=== PATIENT | male | born 1985 | race Caucasian/White ===

== ENCOUNTER 2023-07-13 07:56 | Inpatient (IN) | payer BC, SELFPAY ==
[2023-07-07 09:33] VITALS: BMI 23.3
[2023-07-07 10:13] LABS: Hematocrit 42.7 % (39.0-52.0); Hemoglobin 14.3 g/dL (13.0-18.0); Mean Corp Hgb Conc. 33.5 g/dL (33.0-37.0); Mean Corpuscular Hgb 31.2 pg (27.0-31.0); Platelet Count 223 10^3/uL (130-400); Red Blood Cell Count 4.59 10^6/uL (4.70-6.10); Red Cell Dist. Width 12.6 % (11.5-14.5)
[2023-07-07 10:25] LABS: APTT 28.4 Sec (23.4-35.0); INR 1.01; PT 13.1 Sec (11.4-14.6)
[2023-07-07 11:15] LABS: ALT (SGPT) 50 U/L (0-50); AST (SGOT) 47 U/L (17-59); Albumin 4.7 g/dl (3.5-5.0); Alkaline Phosphatase 66 U/L (38-126); Blood Urea Nitrogen 14 mg/dl (9-20); Calcium 9.8 mg/dl (8.4-10.2); Carbon Dioxide 28 mmol/L (22-30); Chloride 101 mmol/L (98-107); Estimated Creatinine Clearance > 125 ml/min; Glucose 103 mg/dl (70-99); Potassium 4.7 mmol/L (3.5-5.1); Sodium 138 mmol/L (135-145); Total Bilirubin 0.6 mg/dl (0.2-1.3); eGFR > 60.00
[2023-07-07 11:50] LABS: Glycohemoglobin (HgbA1c) 5.4 % (4.0-5.6)
[2023-07-13] VITALS (17 sets, daily range): BP systolic 95–119; BP diastolic 52–78; BMI 23.3
[2023-07-13] MEDS: TYLENOL 1000 MG PO (08:35)
[2023-07-13] MEDS: NORMOSOL-R 1000 IV ×2 (08:36→14:36)
[2023-07-13] MEDS: HEPARIN 5000 UNITS SC (08:36)
[2023-07-13] MEDS: ENTEREG 12 MG PO (08:36)
--- NOTE | 2023-07-13 13:53 | W.IMMPOSTOP ---
Documented by User: RADAMES De La Cruz 07/13/23 13:56
Surgical Immed Post Op Note
-
Primary Surgeon: Umang Garcia M.D.
Assisting Surgeon: Rowan Adamson
Pre-op Diagnosis: Sigmoid diverticulitis
Post-op Diagnosis: Sigmoid diverticulitis
Procedure Performed: Robotic sigmoid colon resection
Anesthesia Type: GET
Specimen / Cultures: Sigmoid colon
Estimated Blood Loss: 20 cc
Complications: None
Operative Findings:

Documented by User: Satish Garcia MD 07/13/23 14:08
Surgical Immed Post Op Note
-
Primary Surgeon: Umang Garcia M.D.
Assisting Surgeon: Rowan Adamson
Pre-op Diagnosis: Sigmoid diverticulitis
Post-op Diagnosis: Sigmoid diverticulitis
Procedure Performed: Robotic sigmoid colon resection
Anesthesia Type: GET
Specimen / Cultures: Sigmoid colon
Estimated Blood Loss: 20 cc
Complications: None
Operative Findings: Chronic sigmoid diverticulitis
Left paraduodenal hernia
Small right indirect inguinal hernia
28mm EEA
Normal leak test
Patient's notified.
[2023-07-13 14:20] LABS: Glucose - Point of Care 122 mg/dl (70-99)
[2023-07-13] MEDS: COMPAZINE 5 MG IV (14:26)
[2023-07-13] MEDS: SUBLIMAZE 50 MCG IV (14:30)
[2023-07-13] MEDS: TORADOL 15 MG IV ×2 (15:11→20:06)
[2023-07-13] MEDS: TYLENOL 650 MG PO ×3 (16:13→23:31)
[2023-07-14 00:53] VITALS: BP 98/56
[2023-07-14] MEDS: TORADOL 15 MG IV ×2 (01:10→08:20)
[2023-07-14] MEDS: NORMOSOL-R 1000 IV (02:30)
[2023-07-14 03:09] VITALS: BMI 23.0
[2023-07-14] MEDS: TYLENOL 650 MG PO ×3 (04:06→12:48)
[2023-07-14 05:44] LABS: % Basophils 0.1 % (0-2); % Eosinophils 0.1 % (0-6); % Immature Granulocytes 0.3 % (0-0.5); % Lymphocytes 18.3 % (20.5-51.1); % Monocytes 7.7 % (1.7-9.3); % Neutrophils 73.5 % (42.2-75.2); Absolute Lymphocytes 1.4 10^3/uL (1.2-3.4); Absolute Monocytes 0.6 10^3/uL (0.1-0.6); Absolute Neutrophils 5.6 10^3/uL (1.4-6.5); Hematocrit 36.1 % (39.0-52.0); Hemoglobin 12.1 g/dL (13.0-18.0); Mean Corp Hgb Conc. 33.5 g/dL (33.0-37.0); Mean Corpuscular Hgb 31.1 pg (27.0-31.0); Mean Corpuscular Volume 92.8 fL (80.0-94.0); Mean Platelet Volume 9.6 fL (7.4-10.4); Nucleated Red Blood Cells % 0 % (-); Platelet Count 184 10^3/uL (130-400); Red Blood Cell Count 3.89 10^6/uL (4.70-6.10); Red Cell Dist. Width 12.6 % (11.5-14.5); White Blood Cell Count 7.6 10^3/uL (4.8-10.8)
[2023-07-14 06:00] VITALS: BMI 23.0
[2023-07-14 06:16] LABS: Blood Urea Nitrogen 12 mg/dl (9-20); Calcium 8.6 mg/dl (8.4-10.2); Carbon Dioxide 24 mmol/L (22-30); Chloride 104 mmol/L (98-107); Estimated Creatinine Clearance > 125 ml/min; Glucose 95 mg/dl (70-99); Potassium 4.5 mmol/L (3.5-5.1); Sodium 133 mmol/L (135-145); eGFR > 60.00
[2023-07-14 07:47] VITALS: BP 91/57
[2023-07-14] MEDS: ENTEREG 12 MG PO (08:20)
[2023-07-14] MEDS: LEXAPRO 10 MG PO (08:20)
--- NOTE | 2023-07-14 08:49 | W.PN.CRS1 ---
Today's Communication / Plan
-
fulls
d/c carlson
OOB
lovenox
Assessment/Plan
-
POD#1 Robotic sigmoid colon resection
1. Advance diet to full liquids. Possible low residue later today if tolerating.
2. D/C carlson.
3. OOB as tolerated.
4. D/C IVFs when tolerating po.
5. DVT prophylaxis: TEDS/SCDS in place. Lovenox to start tonight.
6. OR pathology pending.
7. Pain control: Dilaudid PRN, Tylenol/Toradol standing.
8. Possible d/c later today if has flatus. Discussed with patient discharge instructions. All questions answered.
Subjective Data
Procedure
07/13/2023- Robotic sigmoid colon resection
Subjective Data
Date of Service: July 14, 2023
Patient states he feels well today. He is 'sore' but has no real abdominal pain. He denies nausea or vomiting. He has no flatus yet. He is hungry.
Objective Data
-
Vital Signs
Temp Pulse Resp BP Pulse Ox
98.5 F 65 17 91/57 97
07/14/23 07:47 07/14/23 07:47 07/14/23 07:47 07/14/23 07:47 07/14/23 07:47
Intake & Output
07/13/23 07/14/23 07/15/23
06:59 06:59 06:59
Intake Total 1794 480 / 480
Output Total 1849
Balance -55 / -55 480 / 480
Intake:
Oral fluids 30 / 30 480 / 480
IV fluids (Total) 1764
Normosol 200 / 200
Normosol-R 1,000 ml @ 100 mls/ 125 / 125
hr IV .Q10H [facility] Rx#:[id number]
Output:
Urine, Carlson 1850 / 1849
Lab Results
07/14/23 04:41
07/14/23 04:41
Physical Exam
-
General: No Acute Distress and AOx3
Abdomen: Soft, Non Distended and Non Tender
Incision: Clear, Dry, Intact
[2023-07-14 11:33] VITALS: BP 94/57
--- NOTE | 2023-07-14 11:35 | CM ---
country sales manager reviewed patient's chart and met with patient and patient lives with his spouse and children in a 2 story home, patient is independent with adl's and ambulation, no dme, patient drives, [facility].
PCP: Dr. Velásquez
Plan; Home today no needs.
--- NOTE | 2023-07-14 14:36 | W.DS.TRANS ---
DC Summary - Edge Blacker
-
Discharge Instructions:
Sleep Apnea Risk Low
Discharge Diagnosis/Procedures Robotic sigmoid colon resection
Diet Low Residue
Activity No strenuous activity
Additional Activity No lifting over 10lbs (gallon of milk)
Driving Restrictions No driving for 1 week
Bathing Restrictions OK to Shower
Wound Care Allow glue to naturally fall off. Do not pick at
incisions.
Instructions: Low Fiber Diet
Stand-Alone Forms:
Changes to Home Medications: Yes
Discharge Medications:
DC Medications w/original date entered in [employer]
escitalopram oxalate 10 mg tablet (Lexapro) 10 mg PO DAILY 07/07/23
tramadol 50 mg tablet 50 mg PO Q6H PRN Pain #20 tabs 07/14/23
Home Medication Changes
tramadol 50 mg tablet 50 mg PO Q6H PRN Pain #20 tabs 07/14/23
Pending Results: Yes
Additional Pending Results:
OR pathology
[2023-07-14 15:00] VITALS: BP 103/65
== END 2023-07-14 15:12 | disposition home or self-care (01) | DRG 331 ==
LOC: 2 SOUTH 07:56
PROVIDERS: ADMITTING PHYSICIAN Surgery; FAMILY PHYSICIAN Family Medicine
PROC: 0DTN4ZZ Resection of Sigmoid Colon, Percutaneous Endoscopic Approach (ICD-10-PCS; 2023-07-13)
PROC: 8E0W4CZ Robotic Assisted Procedure of Trunk Region, Percutaneous Endoscopic Approach (ICD-10-PCS; 2023-07-13)
DX: K57.32 Diverticulitis of large intestine without perforation or abscess without bleeding (principal); K40.90 Unilateral inguinal hernia, without obstruction or gangrene, not specified as recurrent; Q45.8 Other specified congenital malformations of digestive system
CPT/HCPCS: 88307; 36415; 80048; 80053; 82962; 83036; 85025; 85027; 85610; 85730; 86850; 86900; 86901; J1335